=== PATIENT | male | born 2005 | race Two or more races ===

== ENCOUNTER 2023-10-04 18:51 | Emergency (ER) | payer OTHER ==
[~2023-10-04] VITALS: Ht 175.3 cm; Wt 66.4 kg
[~2023-10-04 18:51] MED LIST: ALBU17AE27 IH; DEXT7.5S19 PO
[2023-10-04 20:00] VITALS: TEMP 98.9
[2023-10-04] MEDS ORDERED: ALBUTEROL SULFATE 2.5 MG/0.5 ML NEB SOLUTION NEB ONE (20:00)
[2023-10-04] MEDS ORDERED: IPRATROPIUM BROMIDE 0.5 MG/2.5 ML NEB SOLUTION NEB ONE (20:00)
[2023-10-04] MEDS ORDERED: PredniSONE 20 MG TABLET PO ONE (20:15)
[2023-10-04 20:37] VITALS: PULSE 68; RESP 20; O2SAT 97
[2023-10-04 20:48] LABS: COVID AG,FIA SOURCE NASAL SWAB
[2023-10-04 20:52] VITALS: PULSE 75; RESP 20; O2SAT 99
[2023-10-04 21:14] LABS: INFLUENZA TYPE A NEGATIVE FOR TYPE A (NEGATIVE); INFLUENZA TYPE B NEGATIVE FOR TYPE B (NEGATIVE)
[2023-10-04 21:19] LABS: SARS-COV2 (COVID) ANTIGEN,FIA Negative (Negative)
[2023-10-04] MEDS ORDERED: LEVAHFA IH (21:55)
[2023-10-04] MEDS ORDERED: BECL10.62 IH (21:55)
[2023-10-04] MEDS ORDERED: PRED-554 PO (21:55)
[2023-10-04 22:10] VITALS: BP 117/64; PULSE 68; RESP 20
== END 2023-10-04 22:39 | disposition home or self-care (01) ==
LOC: EMS 18:53
DX: J45.901 Unspecified asthma with (acute) exacerbation (principal); Z20.822 Contact with and (suspected) exposure to COVID-19
CPT/HCPCS: 99285; 87426; 87804; 94640; J7512

== ENCOUNTER 2024-10-11 12:27 | Emergency (ER) | payer BC, OTHER ==
[~2024-10-11] VITALS: Ht 170.2 cm; Wt 77.3 kg
[~2024-10-11 12:27] MED LIST changes: +BECL10.62 IH; +LEVAHFA IH; +PRED-554 PO
[2024-10-11 12:30] VITALS: TEMP 98
[2024-10-11 12:37] LABS: COVID AG,FIA SOURCE NASAL SWAB
[2024-10-11 13:30] LABS: INFLUENZA TYPE A NEGATIVE FOR TYPE A (NEGATIVE); INFLUENZA TYPE B NEGATIVE FOR TYPE B (NEGATIVE); SARS-COV2 (COVID) ANTIGEN,FIA Negative (Negative)
[2024-10-11] MEDS: ALBUTEROL SULFATE 2.5 MG/0.5 ML NEB SOLUTION NEB ONE (14:26)
[2024-10-11] MEDS: IPRATROPIUM BROMIDE 0.5 MG/2.5 ML NEB SOLUTION NEB ONE (14:26)
[2024-10-11] MEDS ORDERED: 0.9% SODIUM CHLORIDE 15 ML NEB SOLUTION NEB ONE (14:32)
[2024-10-11 14:36] VITALS: PULSE 67; RESP 18; O2SAT 94
[2024-10-11 14:37] VITALS: PULSE 67; RESP 18; O2SAT 94
[2024-10-11] MEDS: ALBUTEROL SULFATE 2.5 MG/0.5 ML 5 ML NEB SOLUTION NEB ONE (14:41)
[2024-10-11] MEDS: MethylPREDNISolone SOD SUCC 125 MG/2 ML VIAL IVP ONE (14:45)
[2024-10-11] MEDS: MAGNESIUM SULFATE 4 GM/WATER 100 ML IV ONE (15:07)
[2024-10-11 16:14] VITALS: PULSE 102; RESP 18; O2SAT 96
[2024-10-11 16:30] VITALS: BP 123/79; PULSE 85; RESP 16; O2SAT 98
[2024-10-11] MEDS ORDERED: BECL10.62 IH (16:57)
[2024-10-11] MEDS ORDERED: METH4TAB3 PO (16:57)
== END 2024-10-11 17:13 | disposition home or self-care (01) ==
LOC: EMS 12:27
DX: J45.909 Unspecified asthma, uncomplicated (principal); Z79.51 Long term (current) use of inhaled steroids; Z79.52 Long term (current) use of systemic steroids; Z20.822 Contact with and (suspected) exposure to COVID-19
CPT/HCPCS: 99285; 96365; 71045; 96375; 87426; 87804; 94644; J2919; J3475; J7613